=== PATIENT | female | born 1990 | race African-American/Black ===

== ENCOUNTER 2019-07-03 14:55 | Emergency (ER) | payer MEDICAID ==
[~2019-07-03] VITALS: Ht 177.8 cm; Wt 108.9 kg
[2019-07-03 15:20] VITALS: BP 135/75
--- NOTE | 2019-07-03 15:40 | NUR ---
ED Nurse Note: Patient presents to ER due to right side toothache x 3 days. Patient recently moved here and does not have dentist. Reports no N/V or fever or chills. Attemtped to relieve pain with Motrin at home. Regular, unlaobred breathing noted. Placed patient in chair.
--- NOTE | 2019-07-03 16:36 | Emergency Room Report ---
History of Present Illness General Chief Complaint: Toothache Source: Patient Present Illness HPI 29-year-old female presents to the emergency department complaining of progressive pain, tenderness and sensitivity to tooth number 1 x 2 days. Patient reports need for dental extraction she reports that the tooth has been chipped for many years and is always cause some pain however over the last 3 days she has had significant increase and different character of her pain and what she typically experiences. Patient denies fevers or chills she denies swollen tender lymph nodes she denies pus sore throat or facial paresthesias. Patient states she has been taking 200 mg ibuprofen without relief she also has been using oral [id number] to her mouthwash with no relief as well. She did denies any relieving factors she states that eating exacerbates her symptoms. Pt. reports she does not currently have a dentist. Allergies: Uncoded Allergies: CEPHALOSPORIN (Allergy, Unknown, 07/03/19) Patient History Past Medical History: see triage record Past Surgical History: none Pertinent Family History: none Last Menstrual Period: 05/2019 Now: No Reviewed Nursing Documentation: PMH: Agreed; PSxH: Agreed Nursing Documentation-PMH Past Medical History: No Stated History Review of Systems All Other Systems: negative except mentioned in HPI Physical Exam Vital Signs Date Time Temp Pulse Resp B/P (MAP) Pulse Ox O2 Delivery O2 Flow Rate FiO2 07/03/19 15:20 98.6 84 16 135/75 (95) 97 Room Air Sp02 EP Interpretation: reviewed, normal General Appearance: no apparent distress, alert, GCS 15, non-toxic Head: normocephalic, atraumatic Eyes: bilateral eye normal inspection, bilateral eye PERRL ENT: hearing grossly normal, normal voice, other - TTP to tooth no. 1, there are several cracks and missing portions of the crown, root is intact. no palpable fluctuance of the gum line. tenderness to percussion, no LAD. no trismus. Neck: full range of motion Respiratory: lungs clear, normal breath sounds, speaking full sentences Cardiovascular #1: regular rate, rhythm Musculoskeletal: back normal, gait/station normal, normal range of motion, non- tender Neurologic: alert, oriented x3, responsive, motor strength/tone normal, sensory intact, speech normal, grossly normal Psychiatric: judgement/insight normal Lymphatic: no adenopathy Medical Decision Making PA Attestation Dr. Strauss is my supervising physician whom pt. management has been discussed with. Diagnostic Impression: Primary Impression: Acute pulpitis Additional Impression: Dental infection ER Course 29-year-old female presents to the emergency department complaining of progressive pain, tenderness and sensitivity to tooth number 1 x 3 days. Patient reports need for dental extraction she reports that the tooth has been chipped for many years and is always cause some pain however over the last 3 days she has had significant increase and different character of her pain and what she typically experiences. Patient denies fevers or chills she denies swollen tender lymph nodes she denies pus sore throat or facial paresthesias. Patient states she has been taking 200 mg ibuprofen without relief she also has been using oral [id number] to her mouthwash with no relief as well. She did denies any relieving factors she states that eating exacerbates her symptoms. Ddx considered but are not limited to cellulitis, dental abscess, orbital cellulitis, d/l tooth, dental pain. trigeminal neuralgia Vital signs: are WNL, pt. is afebrile H&PE are most consistent with dental infection and acute pulpitis, no palpable gumline abscess/areas of fluctuance.. ORDERS: none required at this time, the diagnosis is clinical ED INTERVENTIONS: Toradol IM 30mg. -I do not identify an emergent condition at this time. With current presentation , pt. is stable for close outpatient follow up and conservative treatment. D/ w pt. to return promptly to ED with worsening or new symptoms.- Pt. verbalizes' understanding and agreement with proposed treatment plan. DISCHARGE: At this time pt. is stable for d/c to home. Will provide printed patient care instructions, and any necessary prescriptions. Care plan and follow up instructions have been discussed with the patient prior to discharge. Last Vital Signs Date Time Temp Pulse Resp B/P (MAP) Pulse Ox O2 Delivery O2 Flow Rate FiO2 07/03/19 15:20 98.6 16 135/75 97 Room Air 07/03/19 15:20 84 Status: improved Disposition: HOME, SELF-CARE Condition: Stable Scripts Ibuprofen* (MOTRIN*) 600 Mg Tablet 600 MG ORAL THREE TIMES A DAY, #30 TAB 0 Refills Prov: Angelica Gunderson 07/03/19 Amoxicillin* (AMOXIL*) 500 Mg Capsule 500 MG ORAL EVERY 8 HOURS for 7 Days, #21 CAP Prov: Angelica Gunderson 07/03/19 Referrals: [facility] Patient Instructions: Dental Pain Additional Instructions: Take medications as directed. Follow up with a Dentist in 3-5 days, even if your symptoms have resolved. * * --Please review list of Dental clinics, if you do not already have a Dentist Return sooner to ED if new symptoms occur, or current symptoms become worse. - Please note that this Emergency Department Report was dictated using [employer] feeder technology software, occasionally this can lead to erroneous entry secondary to interpretation by the dictation equipment. Angelica Gunderson Jul 03, 2019 16:36
[2019-07-03] MEDS ORDERED: IBUPROFEN600 MG ORAL (16:37)
[2019-07-03] MEDS ORDERED: AMOXICILLIN500 MG ORAL (16:37)
[2019-07-03] MEDS ORDERED: Ketorolac 30mg Inj IM ONE (16:45)
[2019-07-03 16:49] VITALS: BP 130/77
--- NOTE | 2019-07-03 16:49 | NUR ---
ER DISCHARGE NOTE: Patient is cleared to be discharged per PA, pt is aox4, on room air, with stable vital signs. pt was given dc and prescription instructions, pt was able to verbalize understanding, pt id band removed. pt is able to ambulate with steady gait. pt took all belongings.
== END 2019-07-03 16:49 | disposition home or self-care (01) ==
LOC: EMR 16:45
DX: K04.01 Reversible pulpitis (principal); K04.7 Periapical abscess without sinus; Z88.8 Allergy status to other drugs, medicaments and biological substances
CPT/HCPCS: 96372; 99283; J1885